=== PATIENT | female | born 2000 | race Caucasian/White ===

== ENCOUNTER 2020-02-24 06:18 | Inpatient (IN) | payer OTHER ==
[~2020-02-24] VITALS: Ht 157.5 cm; Wt 62.1 kg
[2020-02-24] MEDS ORDERED: PRENATAL + DHA1 EAC1 PO (08:26)
== END 2020-02-27 17:57 | disposition home or self-care (01) | DRG 807 ==
LOC: LDR 06:18 → OB/GYN 02-25 05:25
PROVIDERS: ADMIT Obstetrics & Gynecology; ATTEND Obstetrics & Gynecology
PROC: 3E0P7VZ Introduction of Hormone into Female Reproductive, Via Natural or Artificial Opening (ICD-10-PCS; 2020-02-24)
PROC: 10907ZC Drainage of Amniotic Fluid, Therapeutic from Products of Conception, Via Natural or Artificial Opening (ICD-10-PCS; 2020-02-24)
PROC: 4A1HXCZ Monitoring of Products of Conception, Cardiac Rate, External Approach (ICD-10-PCS; 2020-02-24)
PROC: 10E0XZZ Delivery of Products of Conception, External Approach (ICD-10-PCS; principal; 2020-02-25)
PROC: 0KQM0ZZ Repair Perineum Muscle, Open Approach (ICD-10-PCS; 2020-02-25)
PROC: 0UQMXZZ Repair Vulva, External Approach (ICD-10-PCS; 2020-02-25)
DX: O70.1 Second degree perineal laceration during delivery (principal); Z37.0 Single live birth; O71.82 Other specified trauma to perineum and vulva; O48.0 Post-term pregnancy; Z3A.40 40 weeks gestation of pregnancy

== ENCOUNTER 2022-05-26 06:52 | Inpatient (IN) | payer OTHER ==
[~2022-05-26] VITALS: Ht 157.5 cm; Wt 64.0 kg
[~2022-05-26 06:52] MED LIST: PRENATAL + DHA1 EAC1 PO
== END 2022-05-28 13:22 | disposition home or self-care (01) | DRG 807 ==
LOC: OB/GYN 06:52 → LDR 06:52 → OB/GYN 05-27 13:25
PROVIDERS: ADMIT Obstetrics & Gynecology; ATTEND Obstetrics & Gynecology
PROC: 10E0XZZ Delivery of Products of Conception, External Approach (ICD-10-PCS; principal; 2022-05-26)
PROC: 0KQM0ZZ Repair Perineum Muscle, Open Approach (ICD-10-PCS; 2022-05-26)
PROC: 4A1HXCZ Monitoring of Products of Conception, Cardiac Rate, External Approach (ICD-10-PCS; 2022-05-26)
DX: O70.1 Second degree perineal laceration during delivery (principal); Z37.0 Single live birth; Z3A.38 38 weeks gestation of pregnancy; Z20.822 Contact with and (suspected) exposure to COVID-19